=== PATIENT | female | born 1990 | race Caucasian/White ===

== ENCOUNTER 2022-07-09 08:03 | Emergency (ER) | payer OTHER ==
[~2022-07-09] VITALS: Ht 162.6 cm; Wt 69.0 kg
[2022-07-09 08:12] VITALS: BP 119/86
== END 2022-07-09 14:46 | disposition left against medical advice (07) ==
LOC: ER 08:03
DX: O46.92 Antepartum hemorrhage, unspecified, second trimester (principal); Z3A.20 20 weeks gestation of pregnancy
CPT/HCPCS: 99281

== ENCOUNTER 2022-11-24 22:21 | Observation (INO) | payer BC, MEDICAID ==
[~2022-11-24] VITALS: Ht 162.6 cm; Wt 91.2 kg
[2022-11-24] MEDS ORDERED: ONDANSETRON HCL 4MG/2ML INJ IV PRN (23:00)
[2022-11-24] MEDS: LACTATED RINGERS 1,000 ML IV NR ×2 (23:11→23:13)
[2022-12-03] MEDS ORDERED: IBUP-2030 PO (06:46)
[2022-12-03] MEDS ORDERED: MULT-1146 MT (06:46)
[2022-12-03] MEDS ORDERED: FERR-63 PO (06:46)
== END 2022-11-25 00:20 | disposition home or self-care (01) ==
LOC: 8 EST LDRP 22:21
PROVIDERS: ADMIT Specialist; ATTEND Specialist
DX: O62.9 Abnormality of forces of labor, unspecified (principal); Z3A.38 38 weeks gestation of pregnancy
CPT/HCPCS: 96360; 96374; 59025; 96361; 99281; J2405; G0378

== ENCOUNTER 2022-12-01 10:04 | Inpatient (IN) | payer BC ==
[~2022-12-01] VITALS: Ht 162.6 cm; Wt 91.6 kg
[2022-12-01] MEDS ORDERED: LIDOCAINE HCL 1% 20ML VIAL (Pyxis) INJ INFIL SCH (10:45)
[2022-12-01] MEDS ORDERED: PENICILLIN G POTASSIUM 5 MMU in DEXT 5% WATER 100 ML IV SCH (10:45)
[2022-12-01] MEDS ORDERED: CARBOPROST TROMETHAMINE 250 MCG/ML AMPUL IM PRN (10:45)
[2022-12-01] MEDS ORDERED: MISOPROSTOL 100MCG TABLET VG SCH (10:45)
[2022-12-01] MEDS ORDERED: NALOXONE HCL 0.4 MG/ML 1ML VIAL IM PRN (10:45)
[2022-12-01] MEDS ORDERED: METHYLERGONOVINE MALEATE 0.2 MG/ML IM PRN ×2 (10:45→16:30)
[2022-12-01] MEDS ORDERED: LACTATED RINGERS 1,000 ML IV SCH (10:45)
[2022-12-01] MEDS: OXYTOCIN 30 UNITS/500ML NS PMX 500 ML IV SCH ×2 (12:19→16:15)
[2022-12-01 13:03] LABS: BASOPHILS % 0.3 % (0.0-2.0); EOSINOPHILS % 0.5 % (0.0-5.0); HEMATOCRIT. 31.5 % (36.0-48.0); HEMOGLOBIN. 10.6 g/dL (12.0-16.0); LYMPHOCYTES % 21.6 % (20.0-50.0); MEAN CORPUSCULAR HEMOGLOBIN 28.6 pg (28.0-32.0); MEAN CORPUSCULAR VOLUME 84.8 fL (81.0-99.0); MONOCYTES % 5.4 % (2.0-8.0); NEUTROPHILS % 72.2 % (40.0-76.0); PLATELET 209 x1000/uL (130-400); RED BLOOD CELL COUNT 3.72 mill/uL (4.2-5.4); RED CELL DISTRIBUTION WIDTH 13.7 % (11.6-14.6)
[2022-12-01 13:18] LABS: CLARITY URINE CLEAR (CLEAR); COLOR URINE YELLOW (YELLOW); KETONES URINE 1+ (NEGATIVE); LEUKOCYTE ESTERASE URINE TRACE (NEGATIVE); NITRITE URINE NEGATIVE (NEGATIVE); OCCULT BLOOD URINE NEGATIVE (NEGATIVE); PROTEIN URINE TRACE (NEGATIVE); SPECIFIC GRAVITY URINE 1.019 (1.005-1.030)
[2022-12-01 13:20] LABS: INR 0.9; PARTIAL THROMBOPLASTIN TIME 26.4 sec (23.4-31.0); PROTHROMBIN TIME 9.6 sec (9.6-11.0)
[2022-12-01] MEDS ORDERED: ROPIVACAINE HCL/PF EPIDURAL 200 ML EPI SCH (13:30)
[2022-12-01 13:33] LABS: *AMPHETAMINES SCREEN URINE NEGATIVE (NEGATIVE); *BARBITURATES SCREEN URINE NEGATIVE (NEGATIVE); *BENZODIAZEPINES SCREEN URINE NEGATIVE (NEGATIVE); *COCAINE SCREEN URINE NEGATIVE (NEGATIVE); CANNABINOID URINE SCREEN NEGATIVE (NEGATIVE); METHADONE URINE SCREEN NEGATIVE (NEGATIVE); OPIATES URINE SCREEN NEGATIVE (NEGATIVE); PHENCYCLIDINE URINE SCREEN NEGATIVE (NEGATIVE)
[2022-12-01] MEDS ORDERED: PENICILLIN G POTASSIUM 2.5 MMU in DEXTROSE 5% WATER 50 ML IV SCH (15:00)
[2022-12-01 15:56] LABS: HEPATITIS B SURFACE ANTIGEN NEGATIVE
[2022-12-01 16:00] VITALS: BP 110/55; PULSE 78; RESP 18; TEMP 98.7; O2SAT 96
[2022-12-01] MEDS ORDERED: OXYCODONE HCL/ACETAMINOPHEN 5/325MG TABLET PO PRN (16:30)
[2022-12-01] MEDS ORDERED: BENZOCAINE/LANOLIN/ALOE VERA SPRAY TOP PRN (16:30)
[2022-12-01] MEDS ORDERED: IBUPROFEN 400MG TABLET PO PRN (16:30)
[2022-12-01] MEDS ORDERED: OXYTOCIN 30 UNITS/500ML NS PMX 500 ML IV SCH (16:30)
[2022-12-01] MEDS ORDERED: DIPHENHYDRAMINE 25MG CAPSULE PO PRN (16:30)
[2022-12-01] MEDS ORDERED: HEMORRHOIDAL SUPP PR PRN (16:30)
[2022-12-01] MEDS ORDERED: LANOLIN OINT 7GM TUBE TOP PRN (16:30)
[2022-12-01] MEDS ORDERED: IBUPROFEN 800MG TABLET PO PRN (16:30)
[2022-12-01] MEDS ORDERED: GLYCERIN/WITCH HAZEL LEAF MEDICATED PAD TOP PRN (16:30)
[2022-12-01] MEDS ORDERED: RHO(D) IMMUNE GLOBULIN 300 MCG/SYR IM PRN (16:30)
[2022-12-01] MEDS ORDERED: BISACODYL 10MG SUPP PR PRN (16:30)
[2022-12-01 19:30] VITALS: BP 102/59; PULSE 70; RESP 20; TEMP 97.9; O2SAT 98
[2022-12-01] MEDS: MAGNESIUM/ALUMINUM HYDROXIDE/SIMETHICONE 30ML UDC PO SCH (20:50)
[2022-12-01] MEDS: DOCUSATE SODIUM 100MG CAPSULE PO SCH (20:50)
[2022-12-01] MEDS: SIMETHICONE 80MG TABLET CHEW PO SCH (20:52)
[2022-12-01] MEDS ORDERED: INFLUENZA VACCINE 05/PF 0.5 ML SYRINGE IM ONE (21:45)
[2022-12-02 04:00] VITALS: BP 95/58; PULSE 75; RESP 20; TEMP 98.3
[2022-12-02] MEDS: MAGNESIUM/ALUMINUM HYDROXIDE/SIMETHICONE 30ML UDC PO SCH ×4 (07:30→20:45)
[2022-12-02 07:31] LABS: D-DIMER 2.19 mg/L FEU (<0.50); INR 0.9; PARTIAL THROMBOPLASTIN TIME 24.4 sec (23.4-31.0); PROTHROMBIN TIME 9.5 sec (9.6-11.0)
[2022-12-02 07:45] VITALS: BP 95/60; PULSE 70; RESP 18; TEMP 97.9; O2SAT 98
[2022-12-02 07:48] LABS: BASOPHILS % 0.4 % (0.0-2.0); EOSINOPHILS % 1.2 % (0.0-5.0); HEMATOCRIT. 32.4 % (36.0-48.0); LYMPHOCYTES % 22.9 % (20.0-50.0); MEAN CORPUSCULAR HEMOGLOBIN 29.2 pg (28.0-32.0); MEAN CORPUSCULAR VOLUME 86.3 fL (81.0-99.0); MEAN PLATELET VOLUME 9.7 fl (7.4-10.4); MONOCYTES % 5.5 % (2.0-8.0); PLATELET 170 x1000/uL (130-400); RED BLOOD CELL COUNT 3.76 mill/uL (4.2-5.4); RED CELL DISTRIBUTION WIDTH 13.8 % (11.6-14.6)
[2022-12-02 08:06] LABS: CHLORIDE 108 mEq/L (98-107)
[2022-12-02] MEDS: SIMETHICONE 80MG TABLET CHEW PO SCH ×4 (08:58→20:45)
[2022-12-02] MEDS: FERROUS SULFATE 325MG TABLET PO SCH ×3 (08:59→17:44)
[2022-12-02] MEDS: PRENATAL VIT/FE FUMARATE/FA TABLET PO SCH (08:59)
[2022-12-02 16:46] VITALS: BP 90/57; PULSE 83; RESP 18; TEMP 98.9
[2022-12-02 20:00] VITALS: BP 108/63; PULSE 71; RESP 18; TEMP 98.3; O2SAT 98
[2022-12-02] MEDS: DOCUSATE SODIUM 100MG CAPSULE PO SCH (20:45)
[2022-12-03 03:00] VITALS: BP 108/51; PULSE 69; RESP 18; TEMP 98
[2022-12-03] MEDS ORDERED: MEDROXYPROGESTERONE ACETATE 150MG/ML VIAL IM ONE (06:45)
[2022-12-03] MEDS ORDERED: FERR-63 PO (06:46)
[2022-12-03] MEDS ORDERED: IBUP-2030 PO (06:46)
[2022-12-03] MEDS ORDERED: MULT-1146 MT (06:46)
[2022-12-03 07:45] VITALS: BP 111/66; PULSE 68; RESP 18; TEMP 98; O2SAT 97
[2022-12-03] MEDS: PRENATAL VIT/FE FUMARATE/FA TABLET PO SCH (08:46)
[2022-12-03] MEDS: FERROUS SULFATE 325MG TABLET PO SCH (08:46)
[2022-12-03] MEDS: SIMETHICONE 80MG TABLET CHEW PO SCH (08:46)
== END 2022-12-03 12:40 | disposition home or self-care (01) | DRG 560 ==
LOC: OBSVTOIN 10:04 → INTOOBSV 10:04 → 8 EST LDRP 10:04 → 8EST 17:44
PROVIDERS: ADMIT Obstetrics & Gynecology; ATTEND Obstetrics & Gynecology
PROC: 10E0XZZ Delivery of Products of Conception, External Approach (ICD-10-PCS; principal; 2022-12-01)
PROC: 0KQM0ZZ Repair Perineum Muscle, Open Approach (ICD-10-PCS; 2022-12-01)
DX: O99.02 Anemia complicating childbirth (principal); Z37.0 Single live birth; O70.1 Second degree perineal laceration during delivery; Z3A.39 39 weeks gestation of pregnancy
CPT/HCPCS: 36415; 76805; 76818; 80053; 80305; 81003; 84550; 85025; 85379; 85384; 86592; 86703; 86762; 86850; 86900; 87340; 99281; J1050; J2540; J3490; J7060; J7120; A4315; J2590

== ENCOUNTER 2023-11-27 15:08 | Emergency (ER) | payer BC, MEDICAID ==
[~2023-11-27] VITALS: Ht 162.6 cm; Wt 90.7 kg
[~2023-11-27 15:08] MED LIST: FERR-63 PO; IBUP-2030 PO; MULT-1146 MT
[2023-11-27 15:18] VITALS: O2SAT 98
[2023-11-27 15:59] LABS: CLARITY URINE CLEAR (CLEAR); COLOR URINE YELLOW (YELLOW); GLUCOSE URINE NEGATIVE (NEGATIVE); KETONES URINE 2+ (NEGATIVE); LEUKOCYTE ESTERASE URINE 1+ (NEGATIVE); NITRITE URINE NEGATIVE (NEGATIVE); OCCULT BLOOD URINE 3+ (NEGATIVE); PROTEIN URINE TRACE (NEGATIVE); SPECIFIC GRAVITY URINE 1.018 (1.005-1.030)
[2023-11-27 16:03] LABS: BASOPHILS % 0.6 % (0.0-2.0); EOSINOPHILS % 1.6 % (0.0-5.0); HEMATOCRIT. 37.6 % (36.0-48.0); HEMOGLOBIN. 12.3 g/dL (12.0-16.0); LYMPHOCYTES % 27.5 % (20.0-50.0); MEAN CORPUSCULAR HGB CONC 32.6 g/dL (31.0-37.0); MEAN CORPUSCULAR VOLUME 85.9 fL (81.0-99.0); MEAN PLATELET VOLUME 9.4 fl (7.4-10.4); MONOCYTES % 5.2 % (2.0-8.0); NEUTROPHILS % 65.1 % (40.0-76.0); PLATELET 179 x1000/uL (130-400); RED BLOOD CELL COUNT 4.37 mill/uL (4.2-5.4); RED CELL DISTRIBUTION WIDTH 15.1 % (11.6-14.6); WHITE BLOOD COUNT 8.7 x1000/uL (4.5-11.0)
[2023-11-27 16:04] LABS: DIFFERENTIAL COMMENT 1
[2023-11-27 16:07] LABS: CHLORIDE 107 mEq/L (98-107); POTASSIUM 3.4 mEq/L (3.5-5.1); SODIUM 138 mEq/L (136-145)
[2023-11-27 16:08] LABS: CARBON DIOXIDE 22 mEq/L (21-32)
[2023-11-27 16:13] LABS: CREATININE 0.6 mg/dL (0.6-1.0); GLUCOSE 89 mg/dL (70-105); UREA NITROGEN BLOOD 7 mg/dL (9-23)
[2023-11-27 16:18] LABS: BACTERIA URINE NONE SEEN; RBC URINE 50-100 /hpf (0-2); SQUAMOUS EPITHELIAL CELL URINE FEW /lpf (RARE/1+)
[2023-11-27 16:29] LABS: B-HCG QUANTITATIVE 15385 mIU/mL (<3)
[2023-11-27] MEDS ORDERED: CEPH500C2 MT (17:13)
[2023-11-27 17:30] VITALS: BP 117/41; PULSE 79; RESP 18; TEMP 98.2
== END 2023-11-27 17:30 | disposition home or self-care (01) ==
LOC: ER 15:08
DX: O46.8X1 Other antepartum hemorrhage, first trimester (principal); O23.31 Infections of other parts of urinary tract in pregnancy, first trimester; N39.0 Urinary tract infection, site not specified; Z3A.10 10 weeks gestation of pregnancy
CPT/HCPCS: 36415; 76830; 76856; 80048; 81003; 81025; 84702; 85025; 86850; 86900; 99283; 99284

== ENCOUNTER 2023-11-29 09:29 | Emergency (ER) | payer BC ==
[~2023-11-29] VITALS: Ht 165.1 cm; Wt 81.0 kg
[~2023-11-29 09:29] MED LIST changes: +CEPH500C2 MT
[2023-11-29 10:16] VITALS: BP 111/42; PULSE 78; RESP 18; TEMP 98.7; O2SAT 100
[2023-11-29 10:42] LABS: BASOPHILS % 0.7 % (0.0-2.0); EOSINOPHILS % 1.7 % (0.0-5.0); HEMATOCRIT. 38.4 % (36.0-48.0); HEMOGLOBIN. 12.6 g/dL (12.0-16.0); LYMPHOCYTES % 26.7 % (20.0-50.0); MEAN CORPUSCULAR HGB CONC 32.9 g/dL (31.0-37.0); MEAN CORPUSCULAR VOLUME 85.1 fL (81.0-99.0); MEAN PLATELET VOLUME 9.2 fl (7.4-10.4); MONOCYTES % 5.8 % (2.0-8.0); NEUTROPHILS % 65.1 % (40.0-76.0); PLATELET 256 x1000/uL (130-400); RED BLOOD CELL COUNT 4.51 mill/uL (4.2-5.4); RED CELL DISTRIBUTION WIDTH 15.5 % (11.6-14.6); WHITE BLOOD COUNT 6.7 x1000/uL (4.5-11.0)
== END 2023-11-29 12:04 | disposition home or self-care (01) ==
LOC: ER 09:29
DX: O02.1 Missed abortion (principal); Z3A.01 Less than 8 weeks gestation of pregnancy
CPT/HCPCS: 36415; 76801; 84702; 85025; 99284